=== PATIENT | female | born 1975 | race Hispanic/Latino ===

== ENCOUNTER → 2018-03-20 | Outpatient (CLI) | payer OTHER ==
[~2018-03-20] MED LIST: IOPAMIDOL-370 75 ML VIAL IV ONE
== END | disposition home or self-care (01) ==
LOC: RAH 15:13
PROVIDERS: ATTEND Family Medicine
DX: Z12.31 Encounter for screening mammogram for malignant neoplasm of breast (principal)
CPT/HCPCS: 77067

== ENCOUNTER → 2019-05-05 | Outpatient (CLI) | payer OTHER | END | disposition home or self-care (01) | LOC: RAH 16:01 | PROVIDERS: ATTEND Family Medicine | DX: Z12.31 Encounter for screening mammogram for malignant neoplasm of breast (principal) | CPT/HCPCS: 77067 ==

== ENCOUNTER → 2019-05-20 | Outpatient (CLI) | payer OTHER | END | disposition home or self-care (01) | LOC: RAH 14:59 | PROVIDERS: ATTEND Family Medicine | DX: N60.01 Solitary cyst of right breast (principal) | CPT/HCPCS: 76641; 77065 ==

== ENCOUNTER 2019-06-15 08:30 | Inpatient (IN) | payer OTHER ==
[~2019-06-15] VITALS: Ht 160 cm; Wt 66.0 kg
[2019-06-15 09:40] VITALS: BP 134/80
[2019-06-15 09:49] LABS: BASOPHILS % (AUTO) 0.5 % (0.0-5.0); HEMATOCRIT 38.3 % (36-48); LYMPHOCYTES % (AUTO) 16.9 % (21.0-51.0); MEAN CORPUSCULAR HEMOGLOBIN 33.5 pg (27.0-33.0); MEAN CORPUSCULAR HGB CONC 33.8 g/dL (32.0-36.0); MONOCYTES % (AUTO) 5.1 % (3.0-13.0); NEUTROPHILS % (AUTO) 76.5 % (40.0-77.0); PLATELET COUNT (AUTO) 269 K/uL (130-400); RED BLOOD CELL COUNT(AUTO) 3.87 MIL/uL (4.00-5.50); RED CELL DISTRIBUTION WIDTH 14.1 % (11.0-15.5); WHITE BLOOD COUNT (AUTO) 5.7 K/uL (4.8-10.8)
[2019-06-15] MEDS ORDERED: METH-370 PO ×2 (10:29)
[2019-06-15] MEDS ORDERED: CHOL200013 PO (10:29)
[2019-06-15] MEDS ORDERED: PROP10TA10 PO (10:29)
[2019-06-16] VITALS (21 sets, daily range): BP systolic 111–137; BP diastolic 69–79
[2019-06-16] MEDS: CEFAZOLIN SODIUM 1 GM VIAL IVP SCH ×4 (06:00→23:12)
[2019-06-16] MEDS ORDERED: LIDOCAINE PF 2% 5ML ABBOJECT ONE (06:37)
[2019-06-16] MEDS ORDERED: MIDAZOLAM HCL 1 MG/ML 2ML VIAL ONE (06:38)
[2019-06-16] MEDS ORDERED: PROPOFOL 10 MG/ML 20ML VIAL IV ONE (06:38)
[2019-06-16] MEDS ORDERED: LACTATED RINGERS 1000ML 1,000 ML IV ONE (06:38)
[2019-06-16] MEDS ORDERED: FENTANYL CITRATE PF 50 MCG/1 ML 2ML VIAL ONE (06:38)
[2019-06-16] MEDS ORDERED: ROCURONIUM 10MG/1ML SYR 10 MG/ML ML ONE (06:38)
[2019-06-16] MEDS ORDERED: ONDANSETRON HCL 4 MG/2 ML VIAL ONE (07:06)
[2019-06-16] MEDS ORDERED: DEXAMETHASONE SOD PHOSPHATE 10MG/ML 1ML VIAL ONE (07:06)
[2019-06-16] MEDS ORDERED: NEOSTIGMINE 5MG/5ML SYR IV ONE (07:30)
[2019-06-16] MEDS ORDERED: GLYCOPYRROLATE 1 MG/5 ML SYRINGE ONE ×2 (07:30→08:25)
[2019-06-16] MEDS ORDERED: OCTYL 2-CYANOACRYLATE 1 EACH TP ONE (08:03)
--- NOTE | 2019-06-16 08:30 | NUR ---
ESTELLA 0.2 MG IVP GIVEN AT 0830, ORDERED BY SEVERIANO WEST, FOR HEART RATE IN 38-39. Addendum: 06/16/19 at 0910 by HUNTER LEY RN RN Amended: Links added.
[2019-06-16] MEDS ORDERED: MEPERIDINE-PF 50 MG/ML SYG ONE (08:34)
[2019-06-16] MEDS ORDERED: MEPERIDINE-PF 25 MG/ML SYG ONE (08:59)
[2019-06-16] MEDS ORDERED: CEFAZOLIN SODIUM 1 GM VIAL IVP SCH (10:00)
[2019-06-16] MEDS ORDERED: ONDANSETRON HCL 4 MG/2 ML VIAL IVP PRN (10:00)
[2019-06-16] MEDS ORDERED: HYDROCODONE/ACETAMINOPHEN 7.5/325 MG TAB PO PRN ×2 (10:00)
[2019-06-16] MEDS ORDERED: MORPHINE SULFATE 2 MG/ML 1ML SYG IVP PRN ×2 (10:00)
[2019-06-16] MEDS: LACTATED RINGERS 1000ML 1,000 ML IV SCH (18:17)
[2019-06-17] MEDS: LACTATED RINGERS 1000ML 1,000 ML IV SCH ×3 (01:47→18:00)
[2019-06-17 03:25] VITALS: BP 115/70
--- NOTE | 2019-06-17 06:30 | NUR ---
wray catheter removed, tip intact, pericare done, abdominal dressing removed, incision is dry and intact, applied telfa dressing, applied abdominal dressing. informed to call for assistance to the bathroom, pt voiced understanding. Addendum: 06/17/19 at 0641 by HILARIA GUERRA RN Amended: Links added.
[2019-06-17 06:40] LABS: HEMATOCRIT 27.3 % (36-48); MEAN CORPUSCULAR HEMOGLOBIN 33.7 pg (27.0-33.0); MEAN CORPUSCULAR HGB CONC 34.6 g/dL (32.0-36.0); MEAN CORPUSCULAR VOLUME 97.3 fL (79-99); PLATELET COUNT (AUTO) 225 K/uL (130-400); RED BLOOD CELL COUNT(AUTO) 2.81 MIL/uL (4.00-5.50); RED CELL DISTRIBUTION WIDTH 13.8 % (11.0-15.5); WHITE BLOOD COUNT (AUTO) 7.5 K/uL (4.8-10.8)
--- NOTE | 2019-06-17 08:02 | NUR ---
SPOKE WITH DR. FRANCIS. NEW ORDERS RECEIVED VIA TELEPHONE, PATIENT OKAY TO BE ADVANCE.
[2019-06-17] MEDS: SIMETHICONE 80 MG TAB.CHEW PO PRN ×3 (08:09→21:00)
[2019-06-17] MEDS: DOCUSATE SODIUM 100 MG CAP PO PRN ×2 (08:10→21:00)
[2019-06-17] MEDS: IBUPROFEN 800 MG TAB PO PRN ×2 (08:10→16:43)
[2019-06-17] MEDS ORDERED: HYDROCODONE/ACETAMINOPHEN 5/325 MG TAB PO PRN (08:15)
[2019-06-17] MEDS ORDERED: ACETAMINOPHEN-CODEINE 300/30MG TAB PO PRN (08:15)
[2019-06-17] MEDS ORDERED: BISACODYL 10 MG SUPP.RECT RC PRN (08:15)
--- NOTE | 2019-06-17 08:45 | NUR ---
ACTIVITY PATIENT AMBULATING IN HALLWAY ACCOMPANIED BY FAMILY MEMBER. NO DIZZINESS REPORTED, GAIT IS STEADY.
--- NOTE | 2019-06-17 09:10 | NUR ---
MD GOULD ROUNDING ON PATIENT. POC DISCUSSED WITH PATIENT.
[2019-06-17 11:24] VITALS: BP 121/68
--- NOTE | 2019-06-17 14:54 | NUR ---
DC PLAN VISITED WITH PATIENT. PATIENT LIVES WITH MOTHER. INDEPENDENT ABLE TO PERFORM ADL'S. PATIENT HAS NO SERVICES OR DME'S. FEELS SAFE TO RETURN HOME. Addendum: 06/17/19 at 1455 by TYLOR QUIROZ RN CM Amended: Links added.
[2019-06-17 16:20] VITALS: BP 105/62
[2019-06-17 19:40] VITALS: BP 100/63
[2019-06-17] MEDS: CEFAZOLIN SODIUM 1 GM VIAL IVP SCH (20:11)
[2019-06-17 23:22] VITALS: BP 103/59
[2019-06-18 03:46] VITALS: BP 105/62
[2019-06-18 07:24] VITALS: BP 120/69
[2019-06-18] MEDS: DOCUSATE SODIUM 100 MG CAP PO PRN (08:15)
[2019-06-18] MEDS: SIMETHICONE 80 MG TAB.CHEW PO PRN (08:15)
[2019-06-18] MEDS: IBUPROFEN 800 MG TAB PO PRN (08:16)
--- NOTE | 2019-06-18 09:00 | NUR ---
DR. FRANCIS ROUNDED AND DISCHARGED PT TO HOME. PATIENT HAS REMAINED STABLE AND AFEBRILE.
--- NOTE | 2019-06-18 09:30 | NUR ---
DISCHARGE INSTRUCTIONS GIVEN AND PATIENT VERBALIZED UNDERSTANDING INSTRUCTIONS GIVEN. DENIES ANY FURTHER PAIN. SCRIPT FOR PAIN MANAGEMENT GIVEN TO PATIENT AND INSTRUCTED ON DOSAGE AND FREQUENCY.
--- NOTE | 2019-06-18 10:35 | NUR ---
PT TAKEN VIA W/C TO FAMILY VEHICLE AND WAS DISCHARGED TO SPOUSE IN STABLE CONDITION.
== END 2019-06-18 10:35 | disposition home or self-care (01) | DRG 743 ==
LOC: EDSTATUS 08:30 → DAHIP 06-16 06:00 → WSH 06-16 09:37
PROVIDERS: ADMIT Obstetrics & Gynecology; ATTEND Obstetrics & Gynecology
PROC: 0UT10ZZ Resection of Left Ovary, Open Approach (ICD-10-PCS; 2019-06-16)
PROC: 0UT90ZL Resection of Uterus, Supracervical, Open Approach (ICD-10-PCS; principal; 2019-06-16 07:12)
PROC: 0UT60ZZ Resection of Left Fallopian Tube, Open Approach (ICD-10-PCS; 2019-06-16 07:12)
DX: D25.1 Intramural leiomyoma of uterus (principal); N92.0 Excessive and frequent menstruation with regular cycle; N84.0 Polyp of corpus uteri
CPT/HCPCS: 36415; 84703; 85025; 85027; 86850; 86900; 86901; 88305; A4344; G0378; J0690; J1100; J2001; J2175; J2250; J2405; J2704; J2710; J3010; J3490; J7120

== ENCOUNTER → 2020-05-24 | Outpatient (CLI) | payer OTHER ==
[~2020-05-24] MED LIST changes: +CHOL200013 PO; -IOPAMIDOL-370 75 ML VIAL IV ONE; +METH-370 PO; +PROP10TA10 PO
== END | disposition home or self-care (01) ==
LOC: RAH 14:45
PROVIDERS: ATTEND Family Medicine
DX: Z12.31 Encounter for screening mammogram for malignant neoplasm of breast (principal); N64.89 Other specified disorders of breast
CPT/HCPCS: 77067

== ENCOUNTER → 2021-06-27 | Outpatient (CLI) | payer OTHER | END | disposition home or self-care (01) | LOC: RAH 14:57 | PROVIDERS: ATTEND Family Medicine | DX: Z12.31 Encounter for screening mammogram for malignant neoplasm of breast (principal) | CPT/HCPCS: 77067 ==

== ENCOUNTER → 2021-12-10 | Outpatient (CLI) | payer OTHER ==
[~2021-12-10] MED LIST changes: -METH-370 PO; +METH-386 PO
== END | disposition home or self-care (01) ==
LOC: SHCH 09:28
PROVIDERS: ATTEND Student in an Organized Health Care Education/Training Program
DX: R07.9 Chest pain, unspecified (principal)
CPT/HCPCS: 93306

== ENCOUNTER → 2022-07-01 | Outpatient (CLI) | payer OTHER | END | disposition home or self-care (01) | LOC: RAH 15:49 | PROVIDERS: ATTEND Family Medicine | DX: Z12.31 Encounter for screening mammogram for malignant neoplasm of breast (principal) | CPT/HCPCS: 77067 ==

== ENCOUNTER 2024-07-09 04:43 | Emergency (ER) | payer OTHER ==
[~2024-07-09] VITALS: Ht 157.5 cm; Wt 71.7 kg
[2024-07-09 05:06] LABS: APPEARANCE,URINE CLEAR (CLEAR); BILIRUBIN,URINE NEGATIVE (NEGATIVE); COLOR,URINE COLORLESS (YELLOW); GLUCOSE, URINE (UA) NEGATIVE (NEGATIVE); KETONES,URINE NEGATIVE (NEGATIVE); LEUKOCYTE ESTERASE ,URINE NEGATIVE Leu/uL (NEGATIVE); NITRATE,URINE NEGATIVE (NEGATIVE); OCCULT BLOOD,URINE NEGATIVE (NEGATIVE); PROTEIN,URINE NEGATIVE (NEGATIVE); UROBILINOGEN,URINE 0.2 mg/dL (0.2-1.0)
[2024-07-09 05:15] LABS: BACTERIA,URINE RARE /HPF (None Seen); RBC,URINE 0-1 /HPF (0-1); SQUAMOUS EPITHELIAL CELL,UR RARE /HPF (0-2); WBC,URINE 0-1 /HPF (0-1)
[2024-07-09 05:34] LABS: BASOPHILS # (AUTO) 0.03 K/uL (0.00-0.20); BASOPHILS % (AUTO) 0.4 % (0.0-5.0); EOSINOPHILS # (AUTO) 0.12 K/uL (0.00-0.70); EOSINOPHILS % (AUTO) 1.5 % (0.0-8.0); HEMATOCRIT 36.3 % (36-48); IMMATURE GRANULOCYTE ABSOLUTE 0.02 K/uL (0-1); LYMPHOCYTES # (AUTO) 1.4 K/uL (1.0-4.8); LYMPHOCYTES % (AUTO) 18.2 % (21.0-51.0); MEAN CORPUSCULAR HEMOGLOBIN 33.6 pg (27.0-33.0); MEAN CORPUSCULAR HGB CONC 35.5 g/dL (32.0-36.0); MEAN CORPUSCULAR VOLUME 94.5 fL (79-99); MONOCYTES # (AUTO) 0.5 K/uL (0.1-1.0); MONOCYTES % (AUTO) 6.2 % (3.0-13.0); NEUTROPHILS # (AUTO) 5.7 K/uL (1.8-7.7); NEUTROPHILS % (AUTO) 73.4 % (40.0-77.0); PLATELET COUNT (AUTO) 277 K/uL (130-400); RED BLOOD CELL COUNT(AUTO) 3.84 MIL/uL (4.00-5.50); WHITE BLOOD COUNT (AUTO) 7.8 K/uL (4.8-10.8)
[2024-07-09] MEDS: morPHINE 2 MG SYG IVP ONE (05:34)
[2024-07-09] MEDS: FAMOTIDINE 20MG VIAL IV ONE (05:35)
[2024-07-09] MEDS: ketOROlac 15MG/ML VIAL (15MG/ML) IV ONE (05:35)
[2024-07-09] MEDS: ONDANSETRON 4MG INJ IVP ONE (05:36)
[2024-07-09 05:53] LABS: CREATININE 0.6 mg/dL (0.5-1.0)
[2024-07-09 05:57] LABS: ALBUMIN 3.9 g/dL (3.5-5.0); BILIRUBIN,DIRECT 0.1 mg/dL (0.0-0.3); BILIRUBIN,TOTAL 0.3 mg/dL (0.2-1.0); TOTAL PROTEIN, SERUM 7.1 g/dL (6.0-8.3)
[2024-07-09 06:08] LABS: INR 0.95 (0.85-1.15); PROTHROMBIN TIME 10.3 SEC (9.6-11.6)
[2024-07-09 06:09] LABS: PARTIAL THROMBOPLASTIN TIME 28.7 SEC (26.3-35.5)
[2024-07-09] MEDS ORDERED: IOHEXOL 350 MG/ML 100ML INFUS..BTL IV ONE (06:31)
[2024-07-09 12:16] VITALS: BP 117/70; PULSE 66; RESP 16; TEMP 97.9; O2SAT 97
== END 2024-07-09 12:51 | disposition home or self-care (01) ==
LOC: EDH 04:43
DX: K66.0 Peritoneal adhesions (postprocedural) (postinfection) (principal); R10.31 Right lower quadrant pain; Z79.899 Other long term (current) drug therapy; Z90.710 Acquired absence of both cervix and uterus; Z98.51 Tubal ligation status
CPT/HCPCS: 99285; 74177; 96374; 96375; 76857; 80076; 84484; 80048; 83690; 85025; 85610; 85730; 83605; 81001; 36415; 93005; 84145; J3490; J2270; J2405; J1885; Q9967